=== PATIENT | female | born 1995 | race Caucasian/White ===

== ENCOUNTER 2018-12-14 17:38 | Emergency (ER) | payer OTHER ==
[~2018-12-14 17:38] MED LIST: BACTRIM DS 8001 TA1 PO; CELEXA10 MG PO; DIFLUCAN150 MG PO; MOTRIN600 MG PO; PENICILLIN VK500 MG PO; PYRIDIUM200 MG PO; TRAMADOL HCL50 MG PO; ZANTAC150 MG PO; ZOFRAN4 MG PO; ZYPREXA
[2018-12-14 17:40] VITALS: BP 106/62
== END 2018-12-14 18:13 | disposition left against medical advice (07) ==
LOC: ED 17:38
DX: S00.81XA Abrasion of other part of head, initial encounter (principal); M54.2 Cervicalgia; H53.8 Other visual disturbances; V47.9XXA Unspecified car occupant injured in collision with fixed or stationary object in traffic accident, initial encounter; Y93.89 Activity, other specified; Y92.488 Other paved roadways as the place of occurrence of the external cause; Y99.8 Other external cause status

== ENCOUNTER 2023-04-16 15:22 | Inpatient (IN) | payer MEDICAID ==
[~2023-04-16] VITALS: Ht 170.2 cm; Wt 72.8 kg
[2023-04-16 15:34] VITALS: BP 103/76
[2023-04-16 16:48] LABS: HEMATOCRIT 33.5 % (37.0-47.0); MEAN CELL VOLUME 84.6 fl (81.0-99.0); MEAN CORPUSCULAR HGB CONC 33.1 g/dl (33.0-37.0); RED BLOOD COUNT 3.96 10*6/uL (4.10-5.10); RED CELL DISTRI WIDTH 14.1 % (0-14.5); WHITE BLOOD COUNT 2.1 10*3/uL (4.8-10.8)
[2023-04-16 16:57] LABS: PLATELET COUNT AUTOMATED 21 10*3/uL (130-400)
[2023-04-16 16:58] LABS: MANUAL DIFF REFLEX YES
[2023-04-16 17:14] LABS: ALKALINE PHOSPHATASE 81 U/L (46-116); BUN 7 mg/dl (9-23); CHLORIDE 98 mmol/L (98-107); LIPASE 31 U/L (12-53); POTASSIUM 3.7 mmol/L (3.4-5.1); SGPT/ALT 31 U/L (10-49); TOTAL PROTEIN 5.9 gm/dL (6.0-8.0)
[2023-04-16 17:17] LABS: BETA-HCG, QUANT < 3.0 mIU/mL (3-10); TOTAL CELLS COUNTED 100 #CELLS
[2023-04-16 17:18] LABS: PLATELET SUFFICIENCY LOW (NORMAL)
[2023-04-16 19:25] VITALS: BP 88/47
[2023-04-16 20:20] VITALS: BP 107/54
[2023-04-17] VITALS (10 sets, daily range): BP systolic 91–121; BP diastolic 42–62
[2023-04-17 05:19] LABS: BILIRUBIN 1+ (Negative); BLOOD Negative (Negative); CLARITY Clear (Clear); COLOR Dark Yellow (Yellow); GLUCOSE Negative (Negative); KETONE Trace (Negative); LEUKO ESTERASE 1+ (Negative); NITRITE Negative (Negative); UROBILINOGEN 0.2 E.U./dl (0.0-1.0)
[2023-04-17 05:27] LABS: BACTERIA 2+; MUCOUS 1+; WBC 16-20 wbc/hpf (0-5)
[2023-04-17 07:09] LABS: HEMATOCRIT 29.9 % (37.0-47.0); MANUAL DIFF REFLEX YES; MEAN CELL VOLUME 86.2 fl (81.0-99.0); MEAN CORPUSCULAR HGB 28.2 pg (27.0-31.0); MEAN CORPUSCULAR HGB CONC 32.8 g/dl (33.0-37.0); RED BLOOD COUNT 3.47 10*6/uL (4.10-5.10); RED CELL DISTRI WIDTH 14.6 % (0-14.5)
[2023-04-17 07:10] LABS: ACT PARTIAL THROMBO TIME 32.3 SECONDS (20.0-32.1); INTERNATIONAL NORM RATIO 1.1 (2.0-3.5)
[2023-04-17 07:11] LABS: PLATELET COUNT AUTOMATED 18 10*3/uL (130-400)
[2023-04-17 07:24] LABS: ATYPICAL LYMPHS 3 % (0-0); BURR CELLS FEW; PLATELET SUFFICIENCY LOW (NORMAL); POLYCHROMASIA SLIGHT; TOTAL CELLS COUNTED 100 #CELLS
[2023-04-17 07:39] LABS: ALKALINE PHOSPHATASE 68 U/L (46-116); BUN 9 mg/dl (9-23); CHLORIDE 103 mmol/L (98-107); CHOLESTEROL 75 mg/dL (<200); FREE T4 1.11 ng/dl (0.89-1.76); POTASSIUM 3.6 mmol/L (3.4-5.1); SGPT/ALT 25 U/L (10-49); THYROID STIM HORMONE (HS) 2.737 uIU/ml (0.550-4.780); TOTAL PROTEIN 5.1 gm/dL (6.0-8.0); TRIGLYCERIDES 190 mg/dl (<150)
[2023-04-17 07:41] LABS: VITAMIN D, 25-HYDROXY 34.4 ng/mL (30-100)
[2023-04-17 07:43] LABS: LDL CHOLESTEROL 32 mg/dL (9-159)
[2023-04-18] VITALS: BP 101/47
[2023-04-18 04:00] VITALS: BP 100/50
[2023-04-18 05:06] LABS: HBSAG Negative (Negative); HEP B CORE AB, IGM Negative (Negative); HEPATITIS C ANTIBODY Non Reactive (Non Reactive)
[2023-04-18 06:53] LABS: HEMATOCRIT 29.5 % (37.0-47.0); MEAN CELL VOLUME 85.8 fl (81.0-99.0); MEAN CORPUSCULAR HGB 28.2 pg (27.0-31.0); MEAN CORPUSCULAR HGB CONC 32.9 g/dl (33.0-37.0); MEAN PLATELET VOLUME 14.7 fl (9.6-12.3); RED BLOOD COUNT 3.44 10*6/uL (4.10-5.10); RED CELL DISTRI WIDTH 14.7 % (0-14.5); WHITE BLOOD COUNT 2.7 10*3/uL (4.8-10.8)
[2023-04-18 06:55] LABS: PLATELET COUNT AUTOMATED 39 10*3/uL (130-400)
[2023-04-18 06:56] LABS: MANUAL DIFF REFLEX YES
[2023-04-18 07:15] LABS: ALKALINE PHOSPHATASE 77 U/L (46-116); BUN 8 mg/dl (9-23); CHLORIDE 105 mmol/L (98-107); POTASSIUM 3.6 mmol/L (3.4-5.1); SGPT/ALT 22 U/L (10-49); TOTAL PROTEIN 5.1 gm/dL (6.0-8.0)
[2023-04-18 08:00] VITALS: BP 100/53
[2023-04-18 08:00] LABS: PLATELET SUFFICIENCY LOW (NORMAL); TOTAL CELLS COUNTED 100 #CELLS
[2023-04-18 12:00] VITALS: BP 129/54
[2023-04-18 16:00] VITALS: BP 113/53
[2023-04-18 19:06] LABS: HIV-1 RNA BY PCR <20 (.)
[2023-04-18 20:00] VITALS: BP 96/41
[2023-04-20 19:06] LABS: HISTOPLASMA MYCLIAL AB 1:32 (Neg:<1:2); HISTOPLASMA YEAST AB 1:16 (Neg:<1:2)
== END 2023-04-18 22:37 | disposition short-term general hospital (02) | DRG 720 ==
LOC: ED 15:22 → 5E 18:16 → EDHOLD 18:16 → 5E 19:31
PROVIDERS: Emergency Medicine; Internal Medicine; Student in an Organized Health Care Education/Training Program; ADMIT Internal Medicine; ATTEND Internal Medicine
PROC: 30233R1 Transfusion of Nonautologous Platelets into Peripheral Vein, Percutaneous Approach (ICD-10-PCS; principal; 2023-04-17)
DX: A41.9 Sepsis, unspecified organism (principal); B34.9 Viral infection, unspecified; E44.1 Mild protein-calorie malnutrition; R65.20 Severe sepsis without septic shock; D61.818 Other pancytopenia; E87.1 Hypo-osmolality and hyponatremia; R73.9 Hyperglycemia, unspecified; D69.6 Thrombocytopenia, unspecified; R16.1 Splenomegaly, not elsewhere classified; Z82.3 Family history of stroke; Z83.3 Family history of diabetes mellitus; Z68.25 Body mass index [BMI] 25.0-25.9, adult; E83.51 Hypocalcemia